=== PATIENT | male | born 1950 | race Caucasian/White ===

== ENCOUNTER 2018-02-26 11:18 | Emergency (ER) | payer MEDICARE ==
--- NOTE | 2018-02-26 11:25 | UC ---
Ear Complaint HPI - HPI Summary HPI Summary: 67 yo male presents with decreased hearing and ear pressure. He tells me that he has a history of ear wax build up and has tried to flush his ears at home without success. He thinks this is the cause for his recent symptoms of decreased hearing and R>L ear pressure. Denies fever, chills, sinus symptoms, cough. - History of Current Complaint Stated Complaint: EAR COMPLAINT Time Seen by Provider: 02/26/18 11:23 Hx Obtained From: Patient Onset/Duration: Gradual Onset Severity Initially: Mild Severity Currently: Mild Pain Intensity: 2 Pain Scale Used: 0-10 Numeric - Allergies/Home Medications Allergies/Adverse Reactions: Allergies Allergy/AdvReac Type Severity Reaction Status Date / Time No Known Allergies Allergy Verified 02/26/18 11:27 PMH/Surg Hx/FS Hx/Imm Hx - Additional Past Medical History Additional PMH: Urinary retention Endocrine History: Dyslipidemia Cardiovascular History: Hypertension - Surgical History Surgical History: None - Family History Known Family History: Positive: Other - mother melanoma, father age 98 , no FH of heart disease - Social History Occupation: Employed Full-time Lives: With Family Alcohol Use: None Substance Use Type: None Smoking Status (MU): Former Smoker Have You Smoked in the Last Year: No When Did the Patient Quit Smoking/Using Tobacco: 30 years ago Review of Systems All Other Systems Reviewed And Are Negative: Yes Constitutional: Positive: Negative Skin: Positive: Negative Eyes: Positive: Negative ENT: Positive: Ear Ache Respiratory: Positive: Negative Cardiovascular: Positive: Negative Gastrointestinal: Positive: Negative Neurovascular: Positive: Negative Neurological: Positive: Negative Psychological: Positive: Negative Physical Exam - Summary Physical Exam Summary: GENERAL: NAD. WDWN. No pain distress. SKIN: No rashes, sores, lesions, or open wounds. HEENT: Head: AT/NC Eyes: EOM intact. Conjunctiva clear without inflammation or discharge. Ears: Hearing grossly normal. B/L ears: impacted yellow/brown cerumen unable to visualize TM. S/p irrigation: both TMs WNL and intact. Nose: Nasal mucosa pink and moist. NTTP maxillary and frontal sinus. Throat: Posterior oropharynx without exudates, erythema, or tonsillar enlargement. Uvula midline. NECK: Supple. Nontender. No lymphadenopathy. CHEST: No accessory muscle use. Breathing comfortably and in no distress. CV: Pulses intact. NEURO: Alert. PSYCH: Age appropriate behavior. Triage Information Reviewed: Yes Vital Signs Reviewed: Yes Ear Complaint Course/Dx - Course Course Of Treatment: B/L cerumen impaction. Successful disimpaction and pt experiecnced relief of symptoms. - Differential Dx/Diagnosis Provider Diagnosis: Cerumen impaction Discharge - Sign-Out/Discharge Documenting (check all that apply): Patient Departure All imaging exams completed and their final reports reviewed: No Studies - Discharge Plan Condition: Stable Disposition: HOME Patient Education Materials: Cerumen Impaction (ED) Referrals: Charlie Chou MD [Primary Care Provider] - Additional Instructions: If you develop a fever, shortness of breath, chest pain, new or worsening symptoms - please call your PCP or go to the ED. Your blood pressure was high at todays visit. Please see your primary provider within 4 weeks for recheck and re-evaluation. - Billing Disposition and Condition Condition: STABLE Disposition: Home
[2018-02-26 11:33] VITALS: BP 144/86
== END 2018-02-26 11:55 | disposition home or self-care (01) ==
LOC: UCEAST 11:18
DX: H61.23 Impacted cerumen, bilateral (principal); Z87.891 Personal history of nicotine dependence
CPT/HCPCS: 99211; G0463

== ENCOUNTER 2018-11-16 08:33 | Emergency (ER) | payer MEDICARE ==
--- OUTSIDE RECORDS SUMMARY | 2018-11-16 08:39 | XMS REPORT | Continuity of Care Document ---
:1950 External Reference #:[id number] Author Name Charlie Chou M.D. 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 Onset: 11/03/2010 Benign localized hyperplasia of prostate Charlie Chou M.D. Onset: 2010 Essential hypertension Charlie Chou M.D. Onset: 10/13/2015 Benign prostatic hypertrophy without outflow Charlie Chou M.D. Onset: obstruction Hyperlipidemia Charlie Chou M.D. Onset: 10/03/2016 Thyroid nodule Charlie Chou M.D. Onset: 10/03/2016 Social History Type Date Description Comments Sex Unknown Tobacco Use Start: Unknown End: Former Cigarette Smoker Unknown Tobacco Use Start: Unknown 1 pack per week at most Smoking Status Reviewed: 10/08/18 1 pack per week at most ETOH Use Rarely consumes alcohol Tobacco Use Start: Unknown End: Patient is a former quit 1986 Unknown smoker Recreational Drug Use Denies Drug Use Exercise Type/Frequency Exercises regularly weather permitting; walks 60 minutes daily Allergies, Adverse Reactions, Alerts Description No Known Drug Allergies Medications Active Medications SIG Qnty Indications Ordering Provider Date Lisinopril take one tablet 90tabs Charlie Chou, 05/21/2013 40mg Tablets by mouth every M.D. day Pravastatin Sodium take one tablet 90tabs E78.0 Charlie Chou, 2013 20mg by mouth at M.D. Tablets bedtime Avodart 1 by mouth every 90caps Unknown 0.5mg Capsules day Medications Administered in Office Medication SIG Qnty Indications Ordering Provider Date Shingrix pharmacy administered Unknown 07/28/2018 Injection Shingrix no bill inj-pt brought in Unknown 05/16/2018 Injection Immunizations CPT Code Status Date Vaccine Lot # [id number] Given 11/17/2017 Fluzone High Dose [id number] Given 10/05/2017 Pneumonia Vaccine [id number] Given 12/14/2016 Influenza Virus Vaccine, Quadrivalent, Split, Preservative Free [id number] Given 11/04/2016 Tdap - Tetanus/Diptheria/Acellular Pertussis [id number] Given 10/03/2016 Pneumococcal Conjugate Vaccine 13 Valent For [id number] Intramuscular Use 91663 Given 02/26/2016 Influ Virus Vaccine, Quadrivalent, Split Virus, [place] [id number] Given 11/22/2013 Influenza Virus Vaccine, Quadrivalent, Split, [id number] Preservative Free 42536 Given 05/21/2013 Zoster (Zostavax) [id number] Given 12/07/2012 Flu Vaccine Split Virus Preservative Free For [id number] Indiv 3Yr Older [id number] Given 11/28/2011 Fluzone Vaccine [id number] 74416 Given 02/20/2006 Tetanus And Diptheria (Td) For Adult Use Preservative Free Vital Signs Date Vital Result Comment 10/08/2018 1:28pm Height 73 inches 6'1" Weight 217.00 lb Heart Rate 69 /min BP Systolic Sitting 112 mmHg BP Diastolic Sitting 75 mmHg BMI (Body Mass Index) 28.6 kg/m2 04/09/2018 8:57am Weight 218.00 lb Heart Rate 66 /min BP Systolic Sitting 130 mmHg BP Diastolic Sitting 75 mmHg O2 % BldC Oximetry 95 % Results Test Date Facility Test Result H/L Range Note Laboratory test 09/28/2018 [facility] PSA Diagnostic 1.093 ng/ mL 0-4.[address] [place] [address] [phone] Comp Metabolic 09/28/2018 [facility] Sodium 134 mmol/L Low 135 -[address] [place] [address] [phone] Potassium 4.5 mmol/L Normal 3.5-5.0 Chloride 105 mmol/L Normal 101-111 Co2 Carbon Dioxide 21 mmol/L Low 22-32 Anion Gap 8 mmol/L Normal 2-11 Glucose 107 mg/dL High 70-100 Blood Urea Nitrogen 19 mg/dL Normal 6-24 Creatinine 1.21 mg/dL High 0.67-1.17 BUN/Creatinine Ratio 15.7 Normal 8-20 Calcium 9.0 mg/dL Normal 8.6-10.3 Total Protein 6.3 g/dL Low 6.4-8.9 Albumin 4.1 g/dL Normal 3.2-5.2 Globulin 2.2 g/dL Normal 2-4 Albumin/Globulin Ratio 1.9 Normal 1-3 Total Bilirubin 0.60 mg/dL Normal 0.2-1.0 Alkaline Phosphatase 49 U/L Normal 34-104 Alt 20 U/L Normal 7-52 Ast 19 U/L Normal 13-39 Egfr Non- 59.8 >60 Egfr 72.4 >60 2 Lipid Profile 09/28/2018 [facility] Triglycerides 86 mg/dL 3 (Trig/Chol/HDL) [address] [place] [address] [phone] Cholesterol 132 mg/dL 4 HDL Cholesterol 37.7 mg/dL 5 LDL Cholesterol 77 mg/dL 6 1 Serum levels of PSA measured using the [employer]ather[employer] [place] DXI Hybritech immunoassay should not be interpreted as absolute evidence of the presence or absence of disease. The PSA value should be used in conjunction with other pertinent clinical diagnostic procedures. The values obtained with different assay methods or kits cannot be used interchangeably. 2 Because ethnic data is not always readily available, this report includes an eGFR for both -Americans and non- Americans. The National Kidney Disease Education Program (NKDEP) does not endorse the use of the MDRD equation for patients that are not between the ages of 18 and 70, are , have extremes of body size, muscle mass, or nutritional status, or are non- or non-. According to the National Kidney Foundation, irrespective of diagnosis, the stage of the disease is based on the level of kidney function: Stage Description GFR(mL/min/1.73 m(2)) 1 Kidney damage with normal or decreased GFR 90 2 Kidney damage with mild decrease in GFR 60-89 3 Moderate decrease in GFR 30-59 4 Severe decrease in GFR 15-29 5 Kidney failure <15 (or dialysis) 3 Desirable: <150 Borderline High: 150-199 High: 200-499 Very High: >500 4 Desirable: <200 Borderline High: 200-239 High: >239 5 Low: <40 Desirable: 40-60 High: >60 6 Desirable: <100 Near Optimal: 100-129 Borderline High: 130-159 High: 160-189 Very High: >189 Procedures Date Code Description Status 08/26/2015 692169564 Diabetic Retinal Eye Exam Completed 11/03/2011 [id number] Colonoscopy Completed Medical Devices Description No Information Available Encounters Description No Information Available Assessments Date Code Description Provider 10/08/2018 Z00.00 Encounter for general adult medical Charlie Chou M.D. examination without abnormal findings 10/08/2018 I10 Essential (primary) hypertension Charlie Chou M.D. 10/08/2018 E78.5 Hyperlipidemia, unspecified Charlie Chou M.D. 10/08/2018 R73.01 Impaired fasting glucose hCarlie Chou M.D. 10/08/2018 N40.0 Benign prostatic hyperplasia without lower Charlie Chou M.D. urinary tract sym 10/08/2018 E04.2 Nontoxic multinodular goiter Charlie Chou M.D. Plan of Treatment Future Appointment(s):04/12/2019 10:20 am - Charlie Chou M.D. at [facility]10/08/2018 - Charlie Chou M.D.Z00.00 Encounter for general adult medical examination without abnormal findingsComments: Vaccines current; (+) dental, eye exams. Colon exam due again in 2021.I10 Essential (primary) hypertensionComments:BPs good; continue Rx, home BP checks. Bring in home BP machine with next apptFollow up:6 months or prnE78.5 Hyperlipidemia, unspecifiedComments:On Rx; LDL 77R73.01 Impaired fasting qvgvjhtJ11.0 Benign prostatic hyperplasia without lower urinary tract symE04.2 Nontoxic multinodular goiter Functional Status Description No Information Available Mental Status Description No Information Available Referrals Description No Information Available
[2018-11-16 08:44] VITALS: BP 127/80
--- NOTE | 2018-11-16 09:49 | UC ---
Ear Complaint HPI - HPI Summary HPI Summary: PATIENT HAS A HISTORY OF CERUMEN IMPACTION. EARS ARE IRRIGATED A COUPLE OF TIMES A YEAR. FOR THE PAST FEW DAYS HAS HAD LEFT EAR PAIN AND DECREASED HEARING. HAS TRIED USING OTC DEBROX AND A SQUIRT BOTTLE WITH NO IMPROVEMENT IN SYMPTOMS. - History of Current Complaint Chief Complaint: UCEar Stated Complaint: ear complaint Time Seen by Provider: 11/16/18 09:04 Hx Obtained From: Patient Onset/Duration: Gradual Onset, Lasting Days, Still Present Severity Initially: Moderate Severity Currently: Moderate Pain Intensity: 6 Pain Scale Used: 0-10 Numeric Aggravating Factors: Nothing Alleviating Factors: Nothing Associated Signs/Symptoms: Positive: Hearing Loss, Swelling @ - Allergies/Home Medications Allergies/Adverse Reactions: Allergies Allergy/AdvReac Type Severity Reaction Status Date / Time No Known Allergies Allergy Verified 11/16/18 08:44 PMH/Surg Hx/FS Hx/Imm Hx Cardiovascular History: Hypertension - Surgical History Surgical History: Yes Surgery Procedure, Year, and Place: t&a - Family History Known Family History: Positive: Other - mother melanoma, father age 98 , no FH of heart disease - Social History Alcohol Use: None Substance Use Type: None Smoking Status (MU): Former Smoker Have You Smoked in the Last Year: No When Did the Patient Quit Smoking/Using Tobacco: 30 years ago Review of Systems All Other Systems Reviewed And Are Negative: Yes Constitutional: Positive: Negative Skin: Positive: Negative ENT: Positive: Ear Ache Respiratory: Positive: Negative Cardiovascular: Positive: Negative Gastrointestinal: Positive: Negative Physical Exam Triage Information Reviewed: Yes Appearance: Well-Appearing, No Pain Distress, Well-Nourished Vital Signs: Initial Vital Signs Temp 98.4 F 11/16/18 08:40 Pulse 68 11/16/18 08:40 Resp 18 11/16/18 08:40 BP 127/80 11/16/18 08:40 Pulse Ox 96 11/16/18 08:40 Vital Signs Reviewed: Yes Eyes: Positive: Conjunctiva Clear ENT: Positive: Hearing grossly normal, Other - RIGHT TM NORMAL. SMALL AMOUNT OF DRIED CERUMEN IN EAC. LEFT EAC COMPLETELY SWOLLEN CLOSED. PAIN WITH TRACTION ON PINNA AND PRESSURE ON TRAGUS. Neck: Positive: Supple Respiratory: Positive: No respiratory distress, No accessory muscle use Cardiovascular: Positive: Pulses Normal Abdomen Description: Positive: Soft Musculoskeletal: Positive: No Edema Neurological: Positive: Alert Psychological: Positive: Age Appropriate Behavior Skin: Negative: Rashes Ear Complaint Course/Dx - Course Course Of Treatment: I HAVE ARRANGED FOR PATIENT TO BE SEEN TODAY BY ENT. HE WILL GO DIRECTLY THERE FROM HERE FOR FURTHER EVALUATION AND MANAGEMENT. - Differential Dx/Diagnosis Provider Diagnosis: Left otitis externa Discharge ED - Sign-Out/Discharge Documenting (check all that apply): Patient Departure All imaging exams completed and their final reports reviewed: No Studies - Discharge Plan Condition: Stable Disposition: HOME Patient Education Materials: Otitis Externa (ED) Referrals: Maximus Sanchez MD [Medical Doctor] - (GO DIRECTLY TO THE ENT OFFICE FROM HERE FOR FURTHER EVALUATION AND MANAGEMENT. THEY ARE EXPECTING YOU.) Charlie Chou MD [Primary Care Provider] - If Needed Additional Instructions: YOUR LEFT EAR CANAL IS SWOLLEN CLOSED. WE DO NOT HAVE THE IDEAL MEDICATION HERE IN THE UC FOR YOUR TREATMENT. I HAVE ARRANGED FOR YOU TO BE SEEN BY ENT. GO DIRECTLY THERE FROM HERE FOR FURTHER EVALUATION AND MANAGEMENT. - Billing Disposition and Condition Condition: STABLE Disposition: Home
== END 2018-11-16 09:47 | disposition home or self-care (01) ==
LOC: UCEAST 08:33
DX: H60.92 Unspecified otitis externa, left ear (principal); Z87.891 Personal history of nicotine dependence; I10 Essential (primary) hypertension
CPT/HCPCS: 99211; G0463